=== PATIENT | male | born 1955 | race American Indian/Alaskan Native ===

== ENCOUNTER 2021-07-29 16:02 | Emergency (ER) | payer OTHER ==
[~2021-07-29] VITALS: Ht 170.2 cm; Wt 69.0 kg
[2021-07-29] MEDS ORDERED: PRILOSEC OTC20 MG PO (16:22)
== END 2021-07-29 17:42 | disposition home or self-care (01) ==
LOC: ED 16:02
DX: S33.5XXA Sprain of ligaments of lumbar spine, initial encounter (principal); S70.12XA Contusion of left thigh, initial encounter; W18.30XA Fall on same level, unspecified, initial encounter; Z79.899 Other long term (current) drug therapy
CPT/HCPCS: 72100; 73552; 99283-25